=== PATIENT | male | born 1960 | race African-American/Black ===

== ENCOUNTER 2020-07-09 05:16 | Day surgery (SDC) | payer BC, OTHER ==
[2020-07-07 16:36] VITALS: BMI 26.1
[2020-07-09 09:19] VITALS: TEMP 98
[2020-07-09 10:05] VITALS: BP 115/65; PULSE 58
--- NOTE | 2020-07-12 19:17 | PATH ---
Surgical Pathology Report Patient Name: KAUR [facility]. Rec. #: [id number] /Age/Gender: 1960 (Age: 59) / M Account: [id number] Location: U-ENDOSCOPY Taken: 07/09/2020 Received: 07/09/2020 Reported: 07/12/2020 Physicians: Brady Corral M.D. Specimen(s) Received A: TRANSVERSE COLON POLYP B: ASCENDING COLON POLYP Clinical History Screening Postoperative diagnosis: Diverticulosis, hemorrhoids, 2 colon polyps Final Diagnosis A. TRANSVERSE COLON, POLYP, HOT SNARE POLYPECTOMY: TUBULAR ADENOMA. B. ASCENDING COLON, POLYP, COLD SNARE POLYPECTOMY: TUBULAR ADENOMA. Electronically Signed Jennifer Carr M.D. Gross Description A. Received in formalin, labeled "transverse colon polyp" is a s[place], irregular portion of soft tissue measuring 0.5 cm. in greatest dimension. The specimen is submitted in toto in one cassette. B. Received in formalin labeled "ascending colon polyp," is a 1.0 x 0.8 x 0.2 cm aggregate of santana soft tissue fragments. The formalin is filtered and the specimen is entirely submitted in one cassette. 07/09/2020 saudi07/09/2020
== END 2020-07-09 10:35 | disposition home or self-care (01) ==
LOC: JASU-ENDO 05:16
PROVIDERS: ATTEND Internal Medicine Gastroenterology
PROC: 0DBL8ZX Excision of Transverse Colon, Via Natural or Artificial Opening Endoscopic, Diagnostic (ICD-10-PCS; 2020-07-09)
PROC: 0DBK8ZX Excision of Ascending Colon, Via Natural or Artificial Opening Endoscopic, Diagnostic (ICD-10-PCS; principal; 2020-07-09 09:00)
DX: Z12.11 Encounter for screening for malignant neoplasm of colon (principal); K64.8 Other hemorrhoids; K57.30 Diverticulosis of large intestine without perforation or abscess without bleeding; D12.2 Benign neoplasm of ascending colon; D12.3 Benign neoplasm of transverse colon
CPT/HCPCS: 88305-TC